=== PATIENT | male | born 1945 | race Caucasian/White ===

== ENCOUNTER 2025-06-19 02:03 | Emergency (ER) | payer MEDICARE, SELFPAY ==
[2025-06-19 02:05] VITALS: BP 136/81; PULSE 79; TEMP 36.4; O2SAT 99; BMI 21.6
--- NOTE | 2025-06-19 02:30 | ED.ABDPAIN1 ---
Documented by User: Jorge Luis Spear MD 06/20/25 06:28 HPI - Abdominal Pain General Chief Complaint: Abdominal Pain Stated Complaint: Abdominal Pain Time Seen by Provider: 06/19/25 02:20 Source: patient Mode of arrival: ambulance History of Present Illness HPI narrative: complains of constipation for 2 weeks. No vomiting Related Data Home Medications ?Medication ?Instructions ?Recorded ?Confirmed acetaminophen 325 mg capsule 325 mg PO TID PRN fever or pain 06/19/25 06/19/25 aspirin 81 mg capsule 81 mg PO .every other day 06/19/25 06/19/25 atorvastatin 20 mg tablet 20 mg PO DAILY 06/19/25 06/19/25 carbidopa 25 mg-levodopa 100 mg 3 tab PO DAILY 06/19/25 06/19/25 tablet carbidopa ER 50 mg-levodopa 200 mg 1 tab PO DAILY 06/19/25 06/19/25 tablet,extended release dextran 70-hypromellose (PF) 0.1 1 drp ophthalmic (eye) BID PRN dry 06/19/25 06/19/25 %-0.3 % eye drops in a dropperette eye(s) (Artificial Tears (PF)) docusate sodium 100 mg capsule 100 mg PO DAILY 06/19/25 06/19/25 famotidine 10 mg tablet 10 mg PO DAILY 06/19/25 06/19/25 finasteride 5 mg tablet 5 mg PO DAILY 06/19/25 06/19/25 fludrocortisone 0.1 mg tablet 0.1 mg PO DAILY 06/19/25 06/19/25 fluticasone propionate 50 1 spray intranasal DAILY PRN nasal 06/19/25 06/19/25 mcg/actuation nasal congestion spray,suspension (Flonase Allergy Relief) melatonin 5 mg capsule mg 06/19/25 metoprolol tartrate 25 mg tablet 25 mg PO DAILY 06/19/25 06/19/25 miconazole nitrate 2 % topical 1 applic topical BID PRN rash 06/19/25 06/19/25 cream (Antifungal Extra Thick) midodrine 5 mg tablet 5 mg PO BID 06/19/25 06/19/25 midodrine 5 mg tablet 5 mg PO DAILY 06/19/25 06/19/25 pantoprazole 40 mg tablet,delayed 40 mg PO DAILY 06/19/25 06/19/25 release sodium phosphates 19 gram-7 118 ml [place] DAILY PRN constipation 06/19/25 06/19/25 gram/118 mL enema (Enema) vibegron 75 mg tablet (Gemtesa) 75 mg PO DAILY 06/19/25 06/19/25 Previous Rx's ?Medication ?Instructions ?Recorded bisacodyl 5 mg tablet 5 mg PO DAILY PRN constipation #10 06/19/25 tabs ciprofloxacin HCl 500 mg tablet 500 mg PO BID #10 tabs 06/19/25 erythromycin 5 mg/gram (0.5 %) eye 1 applic ophthalmic (eye) TID #3.5 06/19/25 ointment grams metronidazole 500 mg tablet 500 mg PO Q8H 7 days #21 tabs 06/19/25 Allergies Allergy/AdvReac Type Severity Reaction Status Date / Time darifenacin Allergy Unknown Unknown Verified 06/19/25 02:10 niacin Allergy Unknown Unknown Verified 06/19/25 02:10 lidocaine Allergy Unknown Verified 06/19/25 02:10 PFSH PFSH Social History Little interest or pleasure in doing things: not at all Feeling down, depressed, or hopeless: not at all Exam Constitutional Vital Signs, click to edit/add: Last Vital Signs Temp 97.5 F L 06/19/25 02:05 Pulse 79 06/19/25 02:05 Resp 18 06/19/25 02:05 BP 136/81 06/19/25 02:05 Pulse Ox 99 06/19/25 02:05 O2 Del Method Room Air 06/19/25 02:05 Course Vital Signs Vital signs: Vital Signs Temperature 97.5 F L 06/19/25 02:05 Pulse Rate 79 06/19/25 02:05 Respiratory Rate 18 06/19/25 02:05 Blood Pressure 136/81 06/19/25 02:05 Pulse Oximetry 99 06/19/25 02:05 Oxygen Delivery Method Room Air 06/19/25 02:05 Temperature 97.5 F L 06/19/25 02:05 Pulse Rate 79 06/19/25 02:05 Respiratory Rate 18 06/19/25 02:05 Blood Pressure 136/81 06/19/25 02:05 Pulse Oximetry 99 06/19/25 02:05 Oxygen Delivery Method Room Air 06/19/25 02:05 MDM - Abdominal Pain MDM Narrative Medical decision making narrative: custodial patient presents with abdominal pain and possible constipation. Abdomen with lower quad mild-mod tenderness and is distended. UA positive. CT abd. ordered and pending at change of shift Lab Data Labs: Lab Results 06/19/25 06/19/25 Range/Units 02:10 02:44 WBC 11.5 H (4.0-11.0) 10^3/uL RBC 4.22 L (4.70-6.10) 10^6/uL Hgb 14.5 (14.0-18.0) g/dL Hct 42.3 (42.0-54.0) % MCV 100.2 H (80.0-94.0) fL MCH 34.4 H (25.9-34.0) pg MCHC 34.3 (29.9-35.2) g/dL RDW 12.2 (11.0-15.0) % Plt Count 184 (150-450) 10^3/uL MPV 10.0 (9.5-13.5) fL Neut % (Auto) 79.3 H (43.0-75.0) % Lymph % (Auto) 7.7 L (20.5-60.0) % Loup % (Auto) 10.7 (1.7-12.0) % Eos % (Auto) 1.7 (0.9-7.0) % Baso % (Auto) 0.3 (0.2-2.0) % Neut # (Auto) 9.1 H (1.4-6.5) 10^3/uL Lymph # (Auto) 0.9 L (1.2-3.8) 10^3/uL Loup # (Auto) 1.2 H (0.3-0.8) 10^3/uL Eos # (Auto) 0.2 (0.0-0.7) 10^3/uL Baso # (Auto) 0.0 (0.0-0.1) 10^3/uL Abs Immat Gran (auto) 0.03 (0.00-0.03) 10^3/uL Imm/Tot Granulo (auto) 0.3 (0.0-0.5) % Sodium 139 (136-145) mmol/L Potassium 4.3 (3.5-5.1) mmol/L Chloride 103 (98-107) mmol/L Carbon Dioxide 29.6 (21.0-32.0) mmol/L Anion Gap 10.7 BUN 21.0 H (7.0-18.0) mg/dL Creatinine 0.91 (0.70-1.30) mg/dL Est GFR ( Amer) >60 (>=60 mL/min/1.73m^2) Est GFR (Non-Af Amer) >60 (>=60 mL/min/1.73m^2) BUN/Creatinine Ratio 23.1 Glucose 110 H (74-106) mg/dL Lactate 1.0 (0.4-2.0) mmol/L Calcium 9.4 (8.5-10.1) mg/dL Urine Color Yellow (YELLOW) Urine Clarity Clear (CLEAR) Urine pH 7.5 (5.0-9.0) Ur Specific [place] 1.010 (1.005-1.025) Urine Protein Negative (NEG/TRACE) mg/dL Urine Glucose (UA) Negative (NEGATIVE) mg/dL Urine Ketones Trace A (NEGATIVE) mg/dL Urine Occult Blood Negative (NEGATIVE) Urine Nitrite Positive A (NEGATIVE) Urine Bilirubin Negative (NEGATIVE) Urine Urobilinogen 0.2 (0.2-1.0) EU/dL Ur Leukocyte Esterase Negative (NEGATIVE) Urine RBC None seen (0-2) #/HPF Urine WBC 2-5 A (NONE SEEN) #/HPF Ur Squamous Epith Cells None seen (NONE/RARE) #/LPF Urine Crystals Seen A (None Seen) #/HPF Triple Phos Crystals Moderate Urine Bacteria Small A (NONE SEEN) #/HPF Urine Casts None seen (NONE SEEN) #/LPF Urine Mucus None seen (NONE SEEN) Ur Culture Indicated[place] [place] Discharge Chief Complaint: Abdominal Pain Clinical Impression: Abdominal pain, Acute UTI, Fecal impaction, Colitis, Conjunctivitis Patient Disposition: Home, Self-Care Time of Disposition Decision: 08:23 Condition: Good Prescriptions / Home Meds: New ciprofloxacin HCl 500 mg tablet 500 mg PO BID Qty: 10 0RF metronidazole 500 mg tablet 500 mg PO Q8H 7 Days Qty: 21 0RF erythromycin 5 mg/gram (0.5 %) ointment 1 applic ophthalmic (eye) TID Qty: 3.5 0RF Rx Instructions: both eyes bisacodyl 5 mg tablet 5 mg PO DAILY PRN (Reason: constipation) Qty: 10 0RF No Action acetaminophen 325 mg capsule 325 mg PO TID PRN (Reason: fever or pain) aspirin 81 mg capsule 81 mg PO .every other day atorvastatin 20 mg tablet 20 mg PO DAILY miconazole nitrate [Antifungal Extra Thick] 2 % cream 1 applic topical BID PRN (Reason: rash) Artificial Tears (PF) 0.1-0.3 % dropperette 1 drp ophthalmic (eye) BID PRN (Reason: dry eye(s)) carbidopa-levodopa 25-100 mg tablet 3 tab PO DAILY carbidopa-levodopa 50-200 mg tablet extended release 1 tab PO DAILY docusate sodium 100 mg capsule 100 mg PO DAILY famotidine 10 mg tablet 10 mg PO DAILY finasteride 5 mg tablet 5 mg PO DAILY Enema 19-7 gram/118 mL enema 118 ml [place] DAILY PRN (Reason: constipation) fludrocortisone 0.1 mg tablet 0.1 mg PO DAILY fluticasone propionate [Flonase Allergy Relief] 50 mcg/actuation spray,suspension 1 spray intranasal DAILY PRN (Reason: nasal congestion) Rx Instructions: administer into each nostril Gemtesa 75 mg tablet 75 mg PO DAILY melatonin 5 mg capsule metoprolol tartrate 25 mg tablet 25 mg PO DAILY midodrine 5 mg tablet 5 mg PO BID Rx Instructions: do not give last dose of day after 6PM or within 4 hrs of bedtime midodrine 5 mg tablet 5 mg PO DAILY Rx Instructions: do not give last dose of day after 6PM or within 4 hrs of bedtime pantoprazole 40 mg tablet,delayed release (DR/EC) 40 mg PO DAILY Print Language: Turkish Instructions: Constipation (ED), Urinary Tract Infection in Men (ED), Conjunctivitis (ED) Additional Instructions: Please make sure the patient is well-hydrated and also in case of new symptoms the patient to go back to the ER Referrals: JULIANN RIVERA DO [Primary Care Provider, Family Practice] - 1 week Discharge Date/Time: 06/19/25 10:59 Documented by User: Yoana Aranda MD 06/19/25 14:15 HPI - Abdominal Pain General Chief Complaint: Abdominal Pain Stated Complaint: Abdominal Pain Time Seen by Provider: 06/19/25 02:20 Related Data Home Medications ?Medication ?Instructions ?Recorded ?Confirmed acetaminophen 325 mg capsule 325 mg PO TID PRN fever or pain 06/19/25 06/19/25 aspirin 81 mg capsule 81 mg PO .every other day 06/19/25 06/19/25 atorvastatin 20 mg tablet 20 mg PO DAILY 06/19/25 06/19/25 carbidopa 25 mg-levodopa 100 mg 3 tab PO DAILY 06/19/25 06/19/25 tablet carbidopa ER 50 mg-levodopa 200 mg 1 tab PO DAILY 06/19/25 06/19/25 tablet,extended release dextran 70-hypromellose (PF) 0.1 1 drp ophthalmic (eye) BID PRN dry 06/19/25 06/19/25 %-0.3 % eye drops in a dropperette eye(s) (Artificial Tears (PF)) docusate sodium 100 mg capsule 100 mg PO DAILY 06/19/25 06/19/25 famotidine 10 mg tablet 10 mg PO DAILY 06/19/25 06/19/25 finasteride 5 mg tablet 5 mg PO DAILY 06/19/25 06/19/25 fludrocortisone 0.1 mg tablet 0.1 mg PO DAILY 06/19/25 06/19/25 fluticasone propionate 50 1 spray intranasal DAILY PRN nasal 06/19/25 06/19/25 mcg/actuation nasal congestion spray,suspension (Flonase Allergy Relief) melatonin 5 mg capsule mg 06/19/25 metoprolol tartrate 25 mg tablet 25 mg PO DAILY 06/19/25 06/19/25 miconazole nitrate 2 % topical 1 applic topical BID PRN rash 06/19/25 06/19/25 cream (Antifungal Extra Thick) midodrine 5 mg tablet 5 mg PO BID 06/19/25 06/19/25 midodrine 5 mg tablet 5 mg PO DAILY 06/19/25 06/19/25 pantoprazole 40 mg tablet,delayed 40 mg PO DAILY 06/19/25 06/19/25 release sodium phosphates 19 gram-7 118 ml TX DAILY PRN constipation 06/19/25 06/19/25 gram/118 mL enema (Enema) vibegron 75 mg tablet (Gemtesa) 75 mg PO DAILY 06/19/25 06/19/25 Previous Rx's ?Medication ?Instructions ?Recorded bisacodyl 5 mg tablet 5 mg PO DAILY PRN constipation #10 06/19/25 tabs ciprofloxacin HCl 500 mg tablet 500 mg PO BID #10 tabs 06/19/25 erythromycin 5 mg/gram (0.5 %) eye 1 applic ophthalmic (eye) TID #3.5 06/19/25 ointment grams metronidazole 500 mg tablet 500 mg PO Q8H 7 days #21 tabs 06/19/25 Allergies Allergy/AdvReac Type Severity Reaction Status Date / Time darifenacin Allergy Unknown Unknown Verified 06/19/25 02:10 niacin Allergy Unknown Unknown Verified 06/19/25 02:10 lidocaine Allergy Unknown Verified 06/19/25 02:10 PFSH PFSH Social History Little interest or pleasure in doing things: not at all Feeling down, depressed, or hopeless: not at all Exam Constitutional Vital Signs, click to edit/add: Last Vital Signs Temp 97.5 F L 06/19/25 02:05 Pulse 79 06/19/25 02:05 Resp 18 06/19/25 02:05 BP 136/81 06/19/25 02:05 Pulse Ox 99 06/19/25 02:05 O2 Del Method Room Air 06/19/25 02:05 Course Vital Signs Vital signs: Vital Signs Temperature 97.5 F L 06/19/25 02:05 Pulse Rate 79 06/19/25 02:05 Respiratory Rate 18 06/19/25 02:05 Blood Pressure 136/81 06/19/25 02:05 Pulse Oximetry 99 06/19/25 02:05 Oxygen Delivery Method Room Air 06/19/25 02:05 Temperature 97.5 F L 06/19/25 02:05 Pulse Rate 79 06/19/25 02:05 Respiratory Rate 18 06/19/25 02:05 Blood Pressure 136/81 06/19/25 02:05 Pulse Oximetry 99 06/19/25 02:05 Oxygen Delivery Method Room Air 06/19/25 02:05 MDM - Abdominal Pain MDM Narrative Medical decision making narrative: custodial patient presents with abdominal pain and possible constipation. Abdomen with lower quad mild-mod tenderness and is distended. UA positive. CT abd. ordered and pending at change of shift Dr Aranda : The patient care transferred to vt at the end of the shift at 7 AM The CAT scan of the abdomen pelvis showed that the patient have stool impaction in the patient was disimpacted with enema that was able to get a good amount of stool out patient after that feeling much better Urine also shows some urine infection And patient was covered with Cipro and Flagyl to go home to cover for that mild stranding on the distal rectum that is seen on the CAT scan as well as urine infection The patient also was started on docusate for help with the constipation and for his bilateral eye it was noted that he have some conjunctivitis he was started on erythromycin Bilateral eye were red and congested with whitish drainage which was concerning for conjunctivitis and that why the patient was covered with erythromycin The patient to follow-up with the primary care within 2 to 3 days and to come back to the ER in case of any worsening of the current symptoms or any new symptoms or concerns Lab Data Labs: Lab Results 06/19/25 06/19/25 Range/Units 02:10 02:44 WBC 11.5 H (4.0-11.0) 10^3/uL RBC 4.22 L (4.70-6.10) 10^6/uL Hgb 14.5 (14.0-18.0) g/dL Hct 42.3 (42.0-54.0) % MCV 100.2 H (80.0-94.0) fL MCH 34.4 H (25.9-34.0) pg MCHC 34.3 (29.9-35.2) g/dL RDW 12.2 (11.0-15.0) % Plt Count 184 (150-450) 10^3/uL MPV 10.0 (9.5-13.5) fL Neut % (Auto) 79.3 H (43.0-75.0) % Lymph % (Auto) 7.7 L (20.5-60.0) % Loup % (Auto) 10.7 (1.7-12.0) % Eos % (Auto) 1.7 (0.9-7.0) % Baso % (Auto) 0.3 (0.2-2.0) % Neut # (Auto) 9.1 H (1.4-6.5) 10^3/uL Lymph # (Auto) 0.9 L (1.2-3.8) 10^3/uL Loup # (Auto) 1.2 H (0.3-0.8) 10^3/uL Eos # (Auto) 0.2 (0.0-0.7) 10^3/uL Baso # (Auto) 0.0 (0.0-0.1) 10^3/uL Abs Immat Gran (auto) 0.03 (0.00-0.03) 10^3/uL Imm/Tot Granulo (auto) 0.3 (0.0-0.5) % Sodium 139 (136-145) mmol/L Potassium 4.3 (3.5-5.1) mmol/L Chloride 103 (98-107) mmol/L Carbon Dioxide 29.6 (21.0-32.0) mmol/L Anion Gap 10.7 BUN 21.0 H (7.0-18.0) mg/dL Creatinine 0.91 (0.70-1.30) mg/dL Est GFR ( Amer) >60 (>=60 mL/min/1.73m^2) Est GFR (Non-Af Amer) >60 (>=60 mL/min/1.73m^2) BUN/Creatinine Ratio 23.1 Glucose 110 H (74-106) mg/dL Lactate 1.0 (0.4-2.0) mmol/L Calcium 9.4 (8.5-10.1) mg/dL Urine Color Yellow (YELLOW) Urine Clarity Clear (CLEAR) Urine pH 7.5 (5.0-9.0) Ur Specific [place] 1.010 (1.005-1.025) Urine Protein Negative (NEG/TRACE) mg/dL Urine Glucose (UA) Negative (NEGATIVE) mg/dL Urine Ketones Trace A (NEGATIVE) mg/dL Urine Occult Blood Negative (NEGATIVE) Urine Nitrite Positive A (NEGATIVE) Urine Bilirubin Negative (NEGATIVE) Urine Urobilinogen 0.2 (0.2-1.0) EU/dL Ur Leukocyte Esterase Negative (NEGATIVE) Urine RBC None seen (0-2) #/HPF Urine WBC 2-5 A (NONE SEEN) #/HPF Ur Squamous Epith Cells None seen (NONE/RARE) #/LPF Urine Crystals Seen A (None Seen) #/HPF Triple Phos Crystals Moderate Urine Bacteria Small A (NONE SEEN) #/HPF Urine Casts None seen (NONE SEEN) #/LPF Urine Mucus None seen (NONE SEEN) Ur Culture Indicated[place] [place] Discharge Chief Complaint: Abdominal Pain Clinical Impression: Abdominal pain, Acute UTI, Fecal impaction, Colitis, Conjunctivitis Patient Disposition: Home, Self-Care Time of Disposition Decision: 08:23 Condition: Good Prescriptions / Home Meds: New ciprofloxacin HCl 500 mg tablet 500 mg PO BID Qty: 10 0RF metronidazole 500 mg tablet 500 mg PO Q8H 7 Days Qty: 21 0RF erythromycin 5 mg/gram (0.5 %) ointment 1 applic ophthalmic (eye) TID Qty: 3.5 0RF Rx Instructions: both eyes bisacodyl 5 mg tablet 5 mg PO DAILY PRN (Reason: constipation) Qty: 10 0RF No Action acetaminophen 325 mg capsule 325 mg PO TID PRN (Reason: fever or pain) aspirin 81 mg capsule 81 mg PO .every other day atorvastatin 20 mg tablet 20 mg PO DAILY miconazole nitrate [Antifungal Extra Thick] 2 % cream 1 applic topical BID PRN (Reason: rash) Artificial Tears (PF) 0.1-0.3 % dropperette 1 drp ophthalmic (eye) BID PRN (Reason: dry eye(s)) carbidopa-levodopa 25-100 mg tablet 3 tab PO DAILY carbidopa-levodopa 50-200 mg tablet extended release 1 tab PO DAILY docusate sodium 100 mg capsule 100 mg PO DAILY famotidine 10 mg tablet 10 mg PO DAILY finasteride 5 mg tablet 5 mg PO DAILY Enema 19-7 gram/118 mL enema 118 ml [place] DAILY PRN (Reason: constipation) fludrocortisone 0.1 mg tablet 0.1 mg PO DAILY fluticasone propionate [Flonase Allergy Relief] 50 mcg/actuation spray,suspension 1 spray intranasal DAILY PRN (Reason: nasal congestion) Rx Instructions: administer into each nostril Gemtesa 75 mg tablet 75 mg PO DAILY melatonin 5 mg capsule metoprolol tartrate 25 mg tablet 25 mg PO DAILY midodrine 5 mg tablet 5 mg PO BID Rx Instructions: do not give last dose of day after 6PM or within 4 hrs of bedtime midodrine 5 mg tablet 5 mg PO DAILY Rx Instructions: do not give last dose of day after 6PM or within 4 hrs of bedtime pantoprazole 40 mg tablet,delayed release (DR/EC) 40 mg PO DAILY Print Language: Turkish Instructions: Constipation (ED), Urinary Tract Infection in Men (ED), Conjunctivitis (ED) Additional Instructions: Please make sure the patient is well-hydrated and also in case of new symptoms the patient to go back to the ER Referrals: JULIANN RIVERA DO [Primary Care Provider, Family Practice] - 1 week Discharge Date/Time: 06/19/25 10:59
[2025-06-19 02:52] LABS: Glucose Urine UA NEGATIVE (NEGATIVE)
[2025-06-19 02:56] LABS: Hematocrit 42.3 % (42.0-54.0); Hemoglobin 14.5 g/dL (14.0-18.0); Immature Granulocytes Abs Auto 0.03 10^3/uL (0.00-0.03); Immature Granulocytes Pct Auto 0.3 % (0.0-0.5); Lymphocytes Absolute Auto 0.9 10^3/uL (1.2-3.8); Mean Corpuscular HGB Conc 34.3 g/dL (29.9-35.2); Mean Corpuscular Hemoglobin 34.4 pg (25.9-34.0); Mean Corpuscular Volume 100.2 fL (80.0-94.0); Platelet Count 184 10^3/uL (150-450); Red Blood Count 4.22 10^6/uL (4.70-6.10); White Blood Count 11.5 10^3/uL (4.0-11.0)
[2025-06-19 03:00] LABS: Cast Seen? NONE SEEN #/LPF (NONE SEEN); Crystals Seen? Seen #/HPF (None Seen); Urine Culture Indicated YES-FRMC
[2025-06-19 03:07] LABS: Anion Gap 10.7; Blood Urea Nitrogen 21.0 mg/dL (7.0-18.0); Calcium 9.4 mg/dL (8.5-10.1); Carbon Dioxide 29.6 mmol/L (21.0-32.0); Chloride 103 mmol/L (98-107); Estimated GFR (African America >60 (>=60 mL/min/1.73m^2); Estimated GFR (Non-African Ame >60 (>=60 mL/min/1.73m^2); Glucose 110 mg/dL (74-106); Potassium 4.3 mmol/L (3.5-5.1); Sodium 139 mmol/L (136-145)
[2025-06-19 03:15] LABS: Lactate/Lactic Acid 1.0 mmol/L (0.4-2.0)
--- OUTSIDE RECORDS SUMMARY | 2025-06-19 03:35 | XMS_ITS | Clinical Summary ---
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 Name Role Phone Олег Lopez DO Primary Care Provider [phone] Neena Driver RN Unavailable Hope Lainez MD Unavailable Benjamin Ricketts MD Unavailable [phone] Artemio Torres OD Unavailable Pato Villa MD Unavailable Asher Samson MD Unavailable Samanta Richmond MD Unavailable Sarah Garcia MD Unavailable Jan Ricketts DPNiranjan Unavailable Roxann Mcgowan MD Unavailable Ephraim Quinonez MD Unavailable Allergies Active AllergyReactionsCriticalityNoted DateCommentsDarifenacinUnknownLow 11/23/2022 Other Reaction(s): syncope JwvxdgvohWmvbjnoOgq81/04/0809ChuorjTdhhmJic19/16/2023Wound Dressing AdhesiveRash Low02/21/2025 Paper tape Medications MedicationSigDispense QuantityRefillsLast FilledStart DateEnd DateStatus Multiple Vitamin (MULTI-DAY PO) Take 1 tablet by mouth Daily in the Cgnjrti9812/12/2009ctive polyethylene glycol, PEG, 3350 (Glycolax) 17 GM/SCOOP powder Take 17 g by mouth Daily Stool softenerActive senna-docusate (Grazyna-Colace) 8.6-50 MG tablet Take 1 tablet by mouth Daily as needed for constipationActive carbidopa-levodopa (Sinemet) 25-100 MG tablet Take by mouth See administration instructions 3 tabs in the morning @ 7:30 am and 2 and half at lunch 11 am and 3 pm two and a half, dinner 7 pm two and a half plus 1 sinemet ER tablet, at 7 pm at 10pm he takes 1 tablets sinemet XR Active acetaminophen (Tylenol) 325 MG tablet Take 325 mg by mouth as needed in the morning and 325 mg as needed at noon and 325 mg as needed in the evening. 2 capsule as needed Orally BID.Active latanoprost (Xalatan) 0.005 % ophthalmic solution Administer 1 drop into both eyes in the evening Dr. Verdin denosumab (Prolia) 60 MG/ML solution prefilled syringe Indications:Age-related osteoporosis without current pathological fractureInject 1 mL (60 mg) under the skin every 6 (six) months. To be given at [facility] 1 mL ctive aspirin 81 MG EC tablet Take 81 mg by mouth every other dayActive atorvastatin (Lipitor) 20 MG tablet Indications:Mixed hyperlipidemiaTake 1 tablet (20 mg) by mouth at bedtime 90 tablet ctive fludrocortisone (Florinef) 0.1 MG tablet Indications:Orthostatic hypotensionTake 1 tablet (0.1 mg) by mouth in the morning. 90 tablet ctive propafenone (Rythmol) 150 MG tablet Take 150 mg by mouth every 8 (eight) hours if needed Pill in the pocketActive metoprolol succinate XL (Toprol-XL) 25 MG 24 hr tablet Take 25 mg by mouth if needed Do not crush or chew.Active omeprazole (PriLOSEC) [address] capsule Indications:Gastroesophageal reflux disease, unspecified whether esophagitis presentTake 1 capsule (20 mg) by mouth at bedtime Do not crush or chew. 90 capsule ctive Calcium Carbonate Antacid (TUMS PO) Take 1 tablet by mouth Daily 750mg daily PRNActive Cholecalciferol (Vitamin D) 50 MCG (1999) capsule Take by mouthActive miconazole (Micotin) 2 % cream Apply 1 application topically as needed in the morning and 1 application as needed in the evening (as needed for rash).Active mineral oil enema Insert 1 enema into the rectum Daily as needed for constipation (if senna is unsucessful)Active hydrocortisone 2.5 % cream Apply 1 application topically Daily as needed for irritation (apply to groin area once aa day as needed for redness)Active melatonin 5 MG tablet Take 5 mg by mouth at bedtimeActive midodrine (Proamatine) 5 MG tablet Indications:Neurogenic orthostatic hypotension (HCC)Take 1 tablet (5 mg) by mouth Daily in the Tzyjucy38/09/2025Active Polyvinyl Alcohol-Povidone (REFRESH OP) Administer into affected eye(s)Active finasteride (Proscar) 5 MG tablet Take 5 mg by mouth Daily Do not crush, chew, or split.Active Vibegron (Gemtesa) 75 MG tablet Take 75 mg by mouth Daily in the MorningActive Active Problems ProblemNoted DateDiagnosed DatePrimary lrnathpvheim26/09/2025Dermatitis, zxmuxbjyvj84/29/2023 Assessment & Plan (01/07/2023 3:16 PM EDT): Can do another 2 week refill of the steroid cream. They should contact their relationship manager for further guidance if this is not effective. Osteoporotic compression fracture of spine12/02/20224861Ozbzqjqpszgma99/13/2023 Peripheral venous crfrswfubovwm85/20/2021S/P ablation of atrial fibrillation 05/05/2018 Overview (12/02/2022): 02/21/18 RBD (REM behavioral disorder)03/21/2018Chronic bilateral low back pain without tzxdeomh94/05/2018Neurogenic orthostatic uazkuhdpmim47/23/2018Gastroesophageal reflux ckcsuhc5103/24/2017Sensorineural hearing loss, gxmemozsr21/17/2017 Parkinson's jgrnqcp7806/25/2016 Overview (12/02/2022): Last Assessment & Plan: Assessment: documented history; appears to be responding to carbidopa- levodopa; has some associated autonomicsymptoms (orthostatic hypotension, constipation, sialorrhea, occ. Vision disturbances); no hallucinations; worried about his own health but no associated anxiety disorder; no cognitive impairment; functionally independent PLAN: - advised that he continue medications as prescribed by Neurology - advocated for continued participation in routine exercise program - may benefit from further guidance re: what exercises would be best for his parkinson's disease - recommended continued management as per Neurology Assessment & Plan (01/07/2023 7:45 PM EDT): Recommend continued management from neurology. Anxiety ipkjzyzk12/19/2413Gwguwslvqis70/25/2015ortic valve krawolyh51/25/2015 Atherosclerosis of coronary artery without angina mqgkiuvg30/25/2015 Circumscribed mirxwmrqicx38/25/2015Impaired fasting xkgvqez1005/05/2015Mixed gszsecrgdqhlrl82/25/2015Chronic udbvqntqlird28/22/2011enign prostatic hyperplasia with urinary xvtvdnbbwqa81/23/2009 Assessment & Plan (01/19/2023 3:29 PM EDT): Continues with [facility]. His urologist is tracking amounts and how frequently he pees. Going back to see urologist . Paroxysmal atrial zfndarllsthu95/24/2006 Overview (06/15/2023): Uses pill in pocket: Propafenone/metoprolol Assessment & Plan (01/19/2023 3:23 PM EDT): PRN metoprolol and Rythmol. No changes or related complaints today. Assessment & Plan (12/02/2022 4:15 PM EDT): Has not needed pill in the pocket sotolol Resolved Problems ProblemNoted DateDiagnosed DateResolved DateAbrasion of left leg05/04/2024 06/14/2024acterial qqzutgelvknvbd00cute bacterial conjunctivitis of both eyesLeft leg /18/2024 06/14/2024Hospital discharge follow-upOrchitis04/04/2024 04/14/2024Medicare annual wellness visit, fhwntsreav96/23/202409/cute huywmtyh38ilateral impacted quhlius40 Thoracic aortic apbiron79Macrocytosis Supine vgvuliahbfrs07CP (advance care planning)03/23/2023 07/09/20243918Ayqwnyk98andidiasis of OAB (overactive bladder) Assessment & Plan (02/19/2023 1:05 PM EDT): Skin was prepped with alcohol wipe. Left foot was used today. Needle was inserted without any difficulty around posterior tibial nerve. Intensity was set at 2 initially, then increased to 3 after 15 minutes. After 30 minutes of treatment, needle was discontinued. Patient tolerated well. Incontinence associated bwlfxxzxex50utonomic dysfunction Assessment & Plan (01/19/2023 3:30 PM EDT): Brings in Bps at home that show some 150 systolic. With his history of orthostatic hypotension, will avoid aggressive BP treatment. Assessment & Plan (01/07/2023 7:47 PM EDT): Appreciate input from cardiology and neurology. Reassured patient and his sister that the Bps reports ( in the 130's systolic) were normal and acceptable for patients with orthostasis. Cljsieb02Long term (current) use of ujjjomeepvbzme42/13/2023 06/15/2023Obstructive sleep apnea djwpuyot94Neuropathy Other chronic pain Assessment & Plan (01/19/2023 3:28 PM EDT): Can try take both of the 100mg tabs at the same time at lunch time. Has a hard time due to not eating regularly. They did see Dr. Schneider who is trying to get a nerve block approved. Assessment & Plan (01/07/2023 7:45 PM EDT): Continue to follow with [facility]. Will discuss Celebrex with PCP. Patient denies any history of stomach upset, ulcer, or cardiac disease. Basal cell carcinoma of skin of noseulmonary nodule eriodic limb movements of sleep Lardwmiojimjdlty74gatston coronary artery calcium score between 100 and 92260Vitamin D ztqwgomrpf54 Encounters DateTypeDepartmentCare LwvfJgypoyameti04/11/2025Telephone [facility] Internal Medicine [address] [place] [address] Dedrick Bird, [place] 05/10/2025 2:00 PM EDTProcedure Visit [facility] [address] [place] [address] Jan Ricketts DPM Onychomycosis (Primary Dx); Pain in toes of both feet; Neuropathy; Parkinson's disease with dyskinesia and fluctuating manifestations (HCC) 05/10/20258223Gvtvtx55/24/2025Telephone [facility] Medicine [address] [place] [phone] Briana Schmidt LPN 03/20/2025 3:00 PM EDTOffice Visit [facility] [address] [place] [phone] Олег Lopez DO Parkinson's disease with dyskinesia without fluctuating manifestations (HCC) (Primary Dx); Neurogenic orthostatic hypotension (HCC); Need for vaccination with 20-polyvalent pneumococcal conjugate vaccine; Need for immunization against influenza; Primary hypertension ; Paroxysmal atrial fibrillation (HCC); Osteoporotic compression fracture of vertebra, sequela; Atherosclerosis of [place] coronary artery of [place] heart without angina pectoris ; Medicare annual wellness visit, subsequent; ACP (advance care planning)03/20/2025Travelfrom Last 3 Months Immunizations ImmunizationAdministration DatesNext DueABRYSVO - Respiratory syncytial virus (RSV), vaccine, bivalent, protein subunit RSV prefusion F, diluent reconstituted, 0.5 mL, PF3AS03 Gagysyci54/02/2020,04/05/2019,04/11/2018 Hep A, Adult01/23/1999,06/20/1998Hep A, Hlisbulgehj09/15/1999,06/20/1998Hep B, adult09/01/2011,05/20/2011,04/09/2011Influenza Whole04/11/2013Influenza, High Dose Seasonal, Preservative Free03/17/2022,04/07/2021,03/24/2017,02/26/2016 Influenza, High-dose Seasonal, Quadrivalent, Preservative Free04/20/2024, 04/17/2023Influenza, Seasonal, Quadrivalent, Pfnogtludf41/06/2022Influenza, Obnkhmtsuyv87/10/2024,04/17/2023,03/17/2022,04/07/2021,04/11/2020,03/13/2020, 04/05/2019,03/12/2019,04/11/2018,03/24/2017,03/08/2015Influenza, injectable, quadrivalent, preservative free03/17/2022,03/24/2017,03/08/2015Influenza, seasonal, metlvzqhra26/01/2020,03/12/2019,03/08/2015Influenza, seasonal, injectable, preservative free04/09/2014,04/23/2013,04/12/2012,03/14/2012, 04/15/2011Influenza, seasonal, intradermal, preservative free04/09/2014, 04/23/2013,04/12/2012,03/14/2012,04/15/2011Influenza, trivalent, adjuvanted 03/20/2025,03/13/2020,04/05/2019,04/11/2018Moderna Bivalent Booster Vaccination 05/16/2022Novel claxhagzw-R3S8-43, preservative-free06/21/2009Pfizer Purple Cap SARS-CoV-2 Wzmckypxdpb11/05/2022,1Pneumococcal Conjugate PCV 13 06/03/2015Pneumococcal Conjugate PCV Pneumococcal Conjugate PCV 7 04/26/2016Pneumococcal Polysaccharide ZTMF851408/29/2019,06/05/2015,05/30/2014, 04/25/2007,07/12/2006,06/28/20004866RJKG-DiA-2, Ecovmgzhoxz93/04/2019,12/07/2018, 06/01/2018,11/26/2017,05/27/2017Tdap02/09/2024,03/13/2020,04/09/2011Typhoid, Necrludmrti85/29/2011,04/09/2011,06/20/1998Typhoid, ViCPs04/09/2011,06/20/1998 Tkcflvcpq75/23/2015Zoster, Wuztuummqus72/22/2019,10/30/2018,08/24/2018Zoster, Iwnkbimqnbg69/21/2019Zoster, live07/03/2015 Family History Medical HistoryRelationNameCommentsDiabetesPaternal GrandmotherNo Known Problems SisterMelanomaNeg HxRelationNameStatusCommentsFatherDeceasedMotherDeceasedOther denies family history of melanomaPaternal GrandmotherSister1 sister Social History Tobacco UseTypesPacks/DayYears UsedDateSmoking Tobacco: NeverSmokeless Tobacco: Never Tobacco Cessation:Counseling Given: Not Answered Alcohol UseStandard Drinks/WeekCommentsNever0 (1 standard drink = 0.6 oz pure alcohol)caffeine: chocolateAUDIT-CAnswerDate RecordedQ1: How often do you have a drink containing alcohol?Never03/23/2023Q2: How many drinks containing alcohol do you have on a typical day when you are drinking?Patient does not drink 03/23/2023Q3: How often do you have six or more drinks on one occasion?Never 03/23/2023HQ-2AnswerDate RecordedPatient Health Questionnaire-2 Score0 03/20/2025Sex and Gender InformationValueDate RecordedSex Assigned at BirthNot on fileLegal JniQtxt4609/23/2022 7:24 PM EDTGender IdentityNot on fileSexual OrientationNot on fileOccupationIndustryJob Start DateJob End Dateretired, educationNot on fileNot on fileNot on file Last Filed Vital Signs Vital SignReadingTime TakenCommentsBlood Fgmwfkzx897/6009 3:25 PM EDT Xdkmw626603/20/2025 3:25 PM FHXGeldvsnndzm16.9 ??C (96.7 ??F)05/12/2023 2:22 PM EDTRespiratory Rate--Oxygen Knmalxbkhp45%03/20/2025 3:25 PM EDTInhaled Oxygen Concentration--Boxzqp95.4 kg (153 lb)03/20/2025 3:25 PM NCMLzquvz455.3 cm (5' 11 )03/20/2025 3:25 PM EDTBody Mass Index21.3409 3:25 PM EDT Plan of Treatment DateTypeDepartmentCare Team (Latest Contact Info)Gvdzlqyoxyy81/06/2026 2:30 PM ESTOffice Visit [facility] [place] [address] [place] [address] Олег Lopez DO [address] [place] [address] 07/23/2025 2:00 PM ESTOffice Visit [facility] [address] [place] [address] Jan Ricketts DPM [address] [place] [address] 08/08/2025 2:35 PM ESTOffice Visit [facility] [address] [place] [phone] Roxann Mcgowan MD [address] [place] [address] Health MaintenanceDue DateLast DoneCommentsCOVID-19 Vaccine ( season)/11/2022, 05/16/2022, 05/16/2022, Additional history exists Medicare Annual Wellness (AWV)609/03/2025, 02/01/2024, 02/01/2024, Additional history existsInfluenza JznweacAvhsacokp35/09/2025, 04/20/2024, 04/20/2024, Additional history existsPneumococcal Vaccine: 65+ YearsCompleted 03/20/2025, 06/28/2020, 04/26/2016, Additional history exists Insurance Advance Directives TypeDate RecordedPatient RepresentativeExplanationPower of Attorney02/03/2024 8:43 VP227810/16/24 POA * DNR (Latest Code Status on File) Date ActivatedDate InactivatedComments03/23/2023 3:02 PM * Full Code Date ActivatedDate InactivatedComments01/19/2023 3:42 PM03/23/2023 3:02 PM Care Teams Team MemberRelationshipSpecialtyStart DateEnd Date Олег Lopez DO [address] [place] [address] PCP - GeneralInternal Medicine12/02/22 Hope Lainez MD [address] [place] [address] PCP - [employer]07/12/21 Neena Driver, CLAUDIA [address] [place] [address] Registered NurseCase Management12/30/22 Benjamin Ricketts MD [address] [place] [address] Referring PhysicianPain Medicine03/20/25 Artemio Torres OD [address] [place] [address] Referring PhysicianOptometry03/20/25 Pato Villa MD [address] [place] [address] Referring PhysicianCardiology03/20/25 Asher Samson MD [address] [place] [address] [place] [address] Referring PhysicianCardiology03/20/25 Samanta Richmond MD [address] [facility] [address] [place] [address] Referring PhysicianCardiology03/20/25 Sarah Garcia MD [address] [place] [address] Referring PhysicianUrology03/20/25 Jan Ricketts DPM [address] [facility] [address] [place] [address] Consulting PhysicianPodiatry03/20/25 Roxann Mcgowan MD [address] [place] [address] Referring PhysicianDermatology03/20/25 Ephraim Quinonez MD [address] [place] [address] Referring PhysicianPsychiatry03/20/25
[2025-06-19] MEDS: 0.9 % SODIUM CHLORIDE 1,000 ML 999 ML IV (03:43)
[2025-06-19] MEDS: ERYTHROMYCIN OP OINT 0.5% 1 GM TUBE OP (09:55)
== END 2025-06-19 10:59 | disposition home or self-care (01) ==
PROVIDERS: Emergency Provider Internal Medicine; PCP Family Medicine
DX: N39.0 Urinary tract infection, site not specified (principal); R10.9 Unspecified abdominal pain; K56.41 Fecal impaction; K52.9 Noninfective gastroenteritis and colitis, unspecified; H10.9 Unspecified conjunctivitis
CPT/HCPCS: 36415; 74177; 80048; 81001; 83605; 85025; 87086; 87088; 87186; 99284; Q9967